=== PATIENT | female | born 2005 | race Asian ===

== ENCOUNTER 2024-12-13 20:11 | Emergency (ER) | payer BC, SELFPAY ==
[2024-12-13 20:17] VITALS: BP 117/74; PULSE 73; RESP 18; TEMP 36.7; O2SAT 99; BMI 23.8
--- NOTE | 2024-12-13 20:28 | ED.GENADULT ---
HPI - General Adult General Chief complaint: Laceration/Wound Stated complaint: cut finger Time Seen by Provider: 12/13/24 20:17 Source: patient Mode of arrival: ambulatory Limitations: no limitations History of Present Illness HPI narrative: 19-year-old female coming in today with a laceration to her finger. Patient was cooking and accidentally cut the thumb on the left hand. Tetanus shot was updated 2 days ago at a wellness visit. Related Data Home Medications ?Medication ?Instructions ?Recorded ?Confirmed No Known Home Medications 12/13/24 12/13/24 Allergies Allergy/AdvReac Type Severity Reaction Status Date / Time No Known Drug Allergies Allergy Verified 12/13/24 20:18 Review of Systems Status of ROS: Reports: 6 or more systems reviewed and unremarkable except as noted in History and below Exam Narrative: Exam Narrative: Well-nourished well-developed patient in no acute distress. Alert and oriented. Answers questions appropriately. Mood and affect are appropriate. Thoughts are goal oriented and rational. No tangential or magical thinking noted. Patient speaks in full sentences without needing to catch her breath. HEENT: Normocephalic atraumatic. Extremities: Patient has approximately 8-9 mm laceration just next to the nail bed. Penetrates through the dermis into the subcutaneous tissue. Const: Vital Signs, click to edit/add: Vital Signs - 24 hr 12/13/24 20:17 Temperature 98.1 F Pulse Rate [Right Pulse Oximeter] 73 Respiratory Rate 18 Blood Pressure [Ri ght Upper Arm] 117/74 Pulse Oximetry 99 Oxygen Delivery Me thod Room Air Course Course ED Course: Finger and wound cleaned with wound cleanser and anesthetized with lidocaine. Two sutures with 4-0 Ethilon were placed without difficulty. Vital Signs Vital signs: Initial Vital Signs Temperature 98.1 F 12/13/24 20:17 Temperature Source Temporal Artery Scan 12/13/24 20:17 Pulse Rate 73 12/13/24 20:17 Respiratory Rate 18 12/13/24 20:17 Blood Pressure 117/74 12/13/24 20:17 Blood Pressure Mean 88 12/13/24 20:17 Blood Pressure Position Sitting 12/13/24 20:17 Pulse Oximetry 99 12/13/24 20:17 Oxygen Delivery Method Room Air 12/13/24 20:17 Vital Signs Temperature 98.1 F 12/13/24 20:17 Pulse Rate 73 12/13/24 20:17 Respiratory Rate 18 12/13/24 20:17 Blood Pressure 117/74 12/13/24 20:17 Pulse Oximetry 99 12/13/24 20:17 Oxygen Delivery Method Room Air 12/13/24 20:17 Temperature 98.1 F 12/13/24 20:17 Pulse Rate 73 12/13/24 20:17 Respiratory Rate 18 12/13/24 20:17 Blood Pressure 117/74 12/13/24 20:17 Pulse Oximetry 99 12/13/24 20:17 Oxygen Delivery Method Room Air 12/13/24 20:17 Medical Decision Making MDM Narrative Medical decision making narrative: 19-year-old female with a laceration of the left thumb, treated per above. Discharge Plan Discharge Clinical Impression: Laceration Patient Disposition: Home, Self-Care Condition: Stable Additional Instructions: Keep wound clean and dry. Do not soak such as taking baths, swimming or doing dishes. Follow-up in approximately 1 week for suture removal with your primary care provider. Watch for signs and symptoms of infection including increasing redness of the area, purulent drainage, or fever. If this occurs follow-up right away with your doctor or return to the ER. Keep dressing on for the next 24 hours then change dressing once per day. Prescriptions: No Action No Known Home Medications Stand Alone Forms: [employer]or[employer] Info Instructions
--- OUTSIDE RECORDS SUMMARY | 2024-12-13 20:59 | XMS_ITS | Clinical Summary ---
Author Organization [facility] Address [address] [place] [id number] Care Team Providers Care Boiler Fitter Name Role Phone Kaylen Marquez DO Primary Care Provider [phone] Medications amoxicillin (AMOXIL) 500 mg capsule Take 500 mg by mouth two times daily. Active azelaic acid (FINACEA) 15 % topical gel Apply topically to affected area(s) two times daily. Active tretinoin (RETIN-A) 0.025 % 0.025 % cream Apply topically to affected area(s) at bedtime. Active clindamycin 1% (CLEOCIN-T) 1 % lotion Apply topically to affected area(s) two times daily. Active Sulfacetamide Sodium-Sulfur 10-5 % (w/v) lotion Apply topically to affected area(s) three times daily. Active medication order composer Spirolactone 50mg tablet 1x daily Active Active Problems Problem Noted Date Diagnosed Date History of syncope 12/22/2022 Acne 12/22/2022 Social History Tobacco Use Types Packs/Day Years Used Date Smoking Tobacco: Never Smokeless Tobacco: Never Tobacco Cessation:Counseling Given: Not Answered Alcohol Use Standard Drinks/Week Comments Not Currently 0 (1 standard drink = 0.6 oz pur e alcohol) Social Connections Answer Date Recorded Frequency of Communication with Friends and Fami ly Not on file 12/22/2022 Comments No Sex and Gender Information Value Date Recorded Sex Assigned at Not on file Legal Sex Female 6:42 PM CDT Gender Identity Not on file Sexual Orientation Not on file Obstetrics History Last Filed Vital Signs Vital Sign Reading Time Taken Comments Blood Pressure 103/68 12/22/2022 8:32 AM CDT Pulse 88 12/22/2022 8:32 AM CDT Temperature - - Respiratory Rate - - Oxygen Saturation 99% 12/22/2022 8:32 AM CDT Inhaled Oxygen Concentration - - Weight 67.2 kg (148 lb 3.2 oz) 12/22/2022 8:32 A M CDT Height 166.4 cm (5' 5.5) 12/22/2022 8:32 AM CDT Body Mass Index 24.29 12/22/2022 8:32 AM CDT Plan of Treatment Health Maintenance Due Date Last Done Comments Tetanus booster 2014 Depression screening for age 12+ 2015 HIV for age 15-65 2018 HPV series for age 9-26 (1 - 3-dose series) 2018 Chlamydia for age 16-24 2019 Hepatitis C screening for ag e 18-79 2021 Hepatitis B series for 19+ ( 1 of 3 - 19+ 3-dose series) 2022 BMI (ht and wt on same day) for age 18+ 12/23/2023 12/22/2022 Pap test for age 21-65 2024 COVID-19 vaccine series (2024- season) 2024 03/21/2021, 08/23/2020, 08/02/2020 Influenza Vaccine (#1) 2024 RSV vaccine for adults or (1 - 1-dose 75+ series) 2078 Meningococcal series for age 11-21 Aged Out No longer eligible b ased on patient's age to complete this topic Pneumococcal series for age 6-49 Aged Out No longer eligible b ased on patient's age to complete this topic Insurance [facility] Care Teams Boiler Fitter Relationship Specialty Start Date End Date Kaylen Marquez [place] [address] [address] PCP - General Family Practice 12/22/22
--- OUTSIDE RECORDS SUMMARY | 2024-12-13 20:59 | XMS_ITS | Encounter Summary ---
Author Organization [facility] Address [address] [place] [address] Care Team Providers Care Import Manager Name Role Phone Miguel Winchester MD Primary Care Provider + [phone] Encounter Details Date Type Department Care Team (Late st Contact Info) Description 01/16/2005 [facility] Palak Dobbins MD [address] [facility] [phone] [place] [address] D[place] Social History Tobacco Use Types Packs/Day Years Used Date Smoking Tobacco: Never Assessed Comments Unknown Sex and Gender Information Value Date Recorded Sex Assigned at Not on file Legal Sex Female 6:47 AM PST Gender Identity Not on file Sexual Orientation Not on file documented as of this encounter Plan of Treatment Not on file documented as of this encounter Visit Diagnoses Diagnosis Dysuria documented in this encounter Care Teams Import Manager Relationship Specialty Start Date End Date Miguel Winchester MD PCP - General Family Practice 03/20/09 documented as of this encounter
--- OUTSIDE RECORDS SUMMARY | 2024-12-13 20:59 | XMS_ITS | Clinical Summary ---
Author Organization [facility] Address [address] [place] [address] Care Team Providers Care Bolt Labeler Name Role Phone Miguel Winchester MD Primary Care Provider [phone] Social History Tobacco Use Types Packs/Day Years Used Date Smoking Tobacco: Never Assessed Comments Unknown Sex and Gender Information Value Date Recorded Sex Assigned at Not on file Legal Sex Female 6:47 AM PST Gender Identity Not on file Sexual Orientation Not on file Plan of Treatment Not on file Care Teams Bolt Labeler Relationship Specialty Start Date End Date Miguel Winchester MD PCP - General Family Practice 03/20/09
== END 2024-12-13 20:59 | disposition home or self-care (01) ==
LOC: ED 20:57
PROVIDERS: Emergency Provider Family Medicine
DX: S61.012A Laceration without foreign body of left thumb without damage to nail, initial encounter (principal); W26.9XXA Contact with unspecified sharp object(s), initial encounter
CPT/HCPCS: 12001; 99283; 99284